=== PATIENT | male | born 1955 | race Caucasian/White ===

== ENCOUNTER 2023-02-19 10:54 | Inpatient (IN) | payer MEDICARE ==
[2023-02-19] MEDS ORDERED: Cefepime 2 GM VIAL ONE (11:52)
[2023-02-19] MEDS ORDERED: Furosemide 40 MG/4 ML VIAL ONE (11:53)
[2023-02-19 12:24] LABS: #Eosinphils 0.2 thou/uL (0.0-0.7); #Lymphocytes 0.7 thou/uL (1.20-3.40); #Monocytes 1.1 thou/uL (0.11-0.59); #Neutrophils 5.7 thou/uL (1.40-6.50); %Basophils 0.2 % (0.0-1.0); %Eosinophils 2.4 % (0.0-10.0); %Lymphocytes 8.8 % (21.0-51.0); %Monocytes 13.8 % (0.0-10.0); %Neutrophils 74.8 % (42.0-75.0); Mean Corpuscular HGB CONC 32.2 g/dL (32.0-36.0); Mean Corpuscular Hemoglobin 32.8 pg (27.0-31.0); Mean Platelet Volume 7.2 fL (7.4-10.4); Platelet Count 276 10x3/uL (130-400); RBC Distribution Width 12.6 % (11.5-14.5); Red Blood Cell (RBC) Count 4.59 mill/uL (4.70-6.10); White Blood Cell (WBC) Count 7.6 10x3/uL (4.8-10.8)
[2023-02-19 12:51] LABS: ALT (SGPT) 18 U/L (8-55); AST (SGOT) 39 U/L (5-34); Albumin 3.1 g/dL (3.4-4.8); Alkaline Phosphatase 113 U/L (40-110); Anion Gap 12 mmol/L (10-20); BUN (Urea Nitrogen) 6 mg/dL (8.4-25.7); Bilirubin, Total 2.1 mg/dL (0.2-1.2); CK (CPK) 78 U/L (30-200); CRP (Inflammatory) 2.78 mg/dL (= or < 0.5); Calc. Creatinine Clearance 0 mL/min (70-130); Calcium 8.6 mg/dL (7.8-10.44); Carbon Dioxide 25 mmol/L (23-31); Chloride 105 mmol/L (98-107); Estimated GFR 97; Globulin 3.3 g/dL (2.4-3.5); Glucose 113 mg/dL (80-115); Lipase 40 U/L (8-78); Potassium 3.8 mmol/L (3.5-5.1); Protein, Total 6.4 g/dL (5.8-8.1); Sodium 138 mmol/L (136-145)
[2023-02-19 13:01] LABS: Bilirubin Negative (Negative); Blood, Urine Negative (Negative); Clarity Clear (Clear); Glucose, Urine (Dipstick) Normal (Negative); Ketone, Urine Negative (Negative); Leukocyte Negative Leu/uL (Negative); Nitrite Negative (Negative); Protein, Urine (Dipstick) Negative (Neg-Trace); Specific Gravity, Urine 1.007 (1.002-1.036)
[2023-02-19] MEDS ORDERED: Vancomycin 1 GM/200 ML (FROZEN) BAG ONE (13:28)
[2023-02-19] MEDS ORDERED: Acetaminophen 325 MG TAB PO PRN ×2 (14:13→17:54)
[2023-02-19] MEDS ORDERED: Ondansetron PF 4 MG/2 ML Vial IVP PRN (14:13)
[2023-02-19] MEDS ORDERED: Ondansetron ODT 4 MG TAB SL PRN (14:13)
[2023-02-19 15:29] LABS: Lactic Acid 2.1 mmol/L (0.5-2.2)
[2023-02-19 15:39] LABS: Troponin I 0.012 ng/mL (< 0.028)
[2023-02-19] MEDS ORDERED: Ondansetron ODT 4 MG TAB PO PRN (17:54)
[2023-02-19] MEDS ORDERED: Senokot S 8.6-50 MG TAB PO PRN (17:54)
[2023-02-19] MEDS ORDERED: Nystatin Powder 15 GM BOT TOP PRN (17:55)
[2023-02-19] MEDS ORDERED: Morphine 4 MG/ML VIAL SLOW IVP PRN (17:58)
[2023-02-19] MEDS ORDERED: VANCOMYCIN IVPB PRN (17:59)
[2023-02-19] MEDS ORDERED: Vancomycin 1.5 GRAM/300 ML BAG 1.5 GM in Premix Bag 1 BAG IVPB SCH (18:15)
[2023-02-19] MEDS ORDERED: Vancomycin 1 GM in Premix Bag 1 BAG IVPB SCH (21:00)
[2023-02-20] MEDS: Cefepime 1 GM in Sodium Chloride 0.9% 100 ML IVPB SCH ×2 (00:18→11:25)
[2023-02-20 01:41] LABS: Lactic Acid 1.7 mmol/L (0.5-2.2)
[2023-02-20 04:57] LABS: #Eosinphils 0.2 thou/uL (0.0-0.7); #Lymphocytes 0.8 thou/uL (1.20-3.40); #Monocytes 1.1 thou/uL (0.11-0.59); #Neutrophils 5.1 thou/uL (1.40-6.50); %Basophils 0.2 % (0.0-1.0); %Eosinophils 2.6 % (0.0-10.0); %Lymphocytes 10.7 % (21.0-51.0); %Monocytes 14.9 % (0.0-10.0); %Neutrophils 71.5 % (42.0-75.0); Hemoglobin 14.4 g/dL (14.0-18.0); Hemoglobin A1c 4.8 % (4.0-6.0); Mean Corpuscular HGB CONC 32.8 g/dL (32.0-36.0); Mean Corpuscular Hemoglobin 33.4 pg (27.0-31.0); Mean Platelet Volume 6.9 fL (7.4-10.4); Platelet Count 259 10x3/uL (130-400); RBC Distribution Width 12.5 % (11.5-14.5); White Blood Cell (WBC) Count 7.1 10x3/uL (4.8-10.8)
[2023-02-20 05:22] LABS: Calcium 8.1 mg/dL (7.8-10.44); Chloride 104 mmol/L (98-107); Potassium 3.8 mmol/L (3.5-5.1); Sodium 135 mmol/L (136-145)
[2023-02-20 05:28] LABS: Albumin 3.1 g/dL (3.4-4.8); Globulin 3.2 g/dL (2.4-3.5); Glucose 121 mg/dL (80-115); Protein, Total 6.3 g/dL (5.8-8.1)
[2023-02-20 05:30] LABS: Anion Gap 12 mmol/L (10-20); Bilirubin, Total 2.1 mg/dL (0.2-1.2); Carbon Dioxide 23 mmol/L (23-31)
[2023-02-20 05:31] LABS: Alkaline Phosphatase 109 U/L (40-110)
[2023-02-20 05:32] LABS: BUN (Urea Nitrogen) 7 mg/dL (8.4-25.7); Calc. Creatinine Clearance 202 mL/min (70-130); Estimated GFR 95
[2023-02-20 05:33] LABS: AST (SGOT) 36 U/L (5-34)
[2023-02-20 05:34] LABS: ALT (SGPT) 16 U/L (8-55)
[2023-02-20] MEDS: Furosemide 40 MG/4 ML VIAL SLOW IVP SCH ×2 (06:50→14:55)
[2023-02-20] MEDS ORDERED: VANCOMYCIN 2 GRAM/500 ML BAG 2 GM in Premix Bag 1 BAG IVPB SCH (09:00)
[2023-02-20] MEDS: Albumin 25% 25 GM/100 ML BOT IVPB SCH (17:45)
[2023-02-20] MEDS: VANCOMYCIN 2 GRAM/500 ML BAG 2 GM in Premix Bag 1 BAG IVPB SCH (21:37)
[2023-02-21] MEDS: Albumin 25% 25 GM/100 ML BOT IVPB SCH ×3 (00:09→17:09)
[2023-02-21] MEDS: Cefepime 1 GM in Sodium Chloride 0.9% 100 ML IVPB SCH (01:12)
[2023-02-21 04:47] LABS: #Eosinphils 0.3 thou/uL (0.0-0.7); #Lymphocytes 0.7 thou/uL (1.20-3.40); #Monocytes 0.8 thou/uL (0.11-0.59); #Neutrophils 3.7 thou/uL (1.40-6.50); %Basophils 0.2 % (0.0-1.0); %Eosinophils 5.5 % (0.0-10.0); %Lymphocytes 12.7 % (21.0-51.0); %Monocytes 14.7 % (0.0-10.0); %Neutrophils 66.9 % (42.0-75.0); Hemoglobin 14.2 g/dL (14.0-18.0); Mean Corpuscular HGB CONC 33.4 g/dL (32.0-36.0); Mean Corpuscular Hemoglobin 33.9 pg (27.0-31.0); Mean Platelet Volume 7.3 fL (7.4-10.4); Platelet Count 221 10x3/uL (130-400); RBC Distribution Width 12.5 % (11.5-14.5); Red Blood Cell (RBC) Count 4.19 mill/uL (4.70-6.10); White Blood Cell (WBC) Count 5.5 10x3/uL (4.8-10.8)
[2023-02-21 05:09] LABS: ALT (SGPT) 15 U/L (8-55); AST (SGOT) 34 U/L (5-34); Albumin 3.3 g/dL (3.4-4.8); Alkaline Phosphatase 102 U/L (40-110); Anion Gap 12 mmol/L (10-20); BUN (Urea Nitrogen) 9 mg/dL (8.4-25.7); Bilirubin, Total 1.7 mg/dL (0.2-1.2); Calc. Creatinine Clearance 215 mL/min (70-130); Calcium 8.5 mg/dL (7.8-10.44); Carbon Dioxide 25 mmol/L (23-31); Chloride 106 mmol/L (98-107); Estimated GFR 97; Glucose 116 mg/dL (80-115); Potassium 3.5 mmol/L (3.5-5.1); Protein, Total 6.3 g/dL (5.8-8.1); Sodium 139 mmol/L (136-145)
[2023-02-21] MEDS: Furosemide 40 MG/4 ML VIAL SLOW IVP SCH ×2 (06:42→13:58)
[2023-02-21 08:40] LABS: Vancomycin, Trough 21.2 ug/mL
[2023-02-21] MEDS: VANCOMYCIN 2 GRAM/500 ML BAG 2 GM in Premix Bag 1 BAG IVPB SCH (10:51)
[2023-02-21] MEDS: Vancomycin 1.5 GRAM/300 ML BAG 1.5 GM in Premix Bag 1 BAG IVPB SCH ×2 (11:08→21:35)
[2023-02-21] MEDS: Cefepime 2 GM in Sodium Chloride 0.9% 100 ML IVPB SCH (13:58)
[2023-02-21] MEDS ORDERED: Albumin 25% 25 GM/100 ML BOT IVPB SCH (15:45)
[2023-02-22] MEDS: Cefepime 2 GM in Sodium Chloride 0.9% 100 ML IVPB SCH ×2 (00:06→12:09)
[2023-02-22 05:06] LABS: #Eosinphils 0.4 thou/uL (0.0-0.7); #Lymphocytes 0.6 thou/uL (1.20-3.40); #Monocytes 0.6 thou/uL (0.11-0.59); #Neutrophils 3.3 thou/uL (1.40-6.50); %Basophils 0.7 % (0.0-1.0); %Eosinophils 7.3 % (0.0-10.0); %Lymphocytes 12.3 % (21.0-51.0); %Monocytes 12.9 % (0.0-10.0); %Neutrophils 66.8 % (42.0-75.0); Hemoglobin 14.2 g/dL (14.0-18.0); Mean Corpuscular HGB CONC 34.4 g/dL (32.0-36.0); Mean Corpuscular Hemoglobin 34.7 pg (27.0-31.0); Mean Platelet Volume 7.3 fL (7.4-10.4); Platelet Count 188 10x3/uL (130-400); RBC Distribution Width 12.7 % (11.5-14.5); Red Blood Cell (RBC) Count 4.08 mill/uL (4.70-6.10); White Blood Cell (WBC) Count 4.9 10x3/uL (4.8-10.8)
[2023-02-22 05:35] LABS: Anion Gap 13 mmol/L (10-20); BUN (Urea Nitrogen) 11 mg/dL (8.4-25.7); Calc. Creatinine Clearance 223 mL/min (70-130); Calcium 8.3 mg/dL (7.8-10.44); Carbon Dioxide 24 mmol/L (23-31); Chloride 104 mmol/L (98-107); Estimated GFR 98; Glucose 113 mg/dL (80-115); Potassium 3.2 mmol/L (3.5-5.1); Sodium 138 mmol/L (136-145)
[2023-02-22] MEDS: Furosemide 40 MG/4 ML VIAL SLOW IVP SCH ×2 (06:15→14:56)
[2023-02-22] MEDS: Aquaphor 3.5 oz (99 G) JAR TOP SCH (09:50)
[2023-02-22] MEDS: Vancomycin 1.5 GRAM/300 ML BAG 1.5 GM in Premix Bag 1 BAG IVPB SCH (12:08)
[2023-02-22] MEDS ORDERED: Potassium Chloride 20 MEQ in Premix Bag 1 BAG IVPB SCH (12:15)
[2023-02-22 21:58] LABS: Vancomycin, Trough 20.6 ug/mL
[2023-02-22] MEDS: VANCOMYCIN 1.25 GM/250 ML BAG 1.25 GM in Premix Bag 1 BAG IVPB SCH (22:19)
[2023-02-23] MEDS: Cefepime 2 GM in Sodium Chloride 0.9% 100 ML IVPB SCH ×3 (00:01→23:01)
[2023-02-23 04:47] LABS: #Eosinphils 0.4 thou/uL (0.0-0.7); #Lymphocytes 0.7 thou/uL (1.20-3.40); #Monocytes 0.7 thou/uL (0.11-0.59); #Neutrophils 3.4 thou/uL (1.40-6.50); %Basophils 0.7 % (0.0-1.0); %Eosinophils 7.1 % (0.0-10.0); %Lymphocytes 12.7 % (21.0-51.0); %Monocytes 13.8 % (0.0-10.0); %Neutrophils 65.8 % (42.0-75.0); Hemoglobin 14.1 g/dL (14.0-18.0); Mean Corpuscular HGB CONC 33.1 g/dL (32.0-36.0); Mean Corpuscular Hemoglobin 33.5 pg (27.0-31.0); Mean Platelet Volume 7.5 fL (7.4-10.4); Platelet Count 223 10x3/uL (130-400); RBC Distribution Width 12.7 % (11.5-14.5); Red Blood Cell (RBC) Count 4.21 mill/uL (4.70-6.10); White Blood Cell (WBC) Count 5.1 10x3/uL (4.8-10.8)
[2023-02-23 05:07] LABS: Anion Gap 14 mmol/L (10-20); BUN (Urea Nitrogen) 12 mg/dL (8.4-25.7); Calc. Creatinine Clearance 215 mL/min (70-130); Calcium 8.5 mg/dL (7.8-10.44); Carbon Dioxide 24 mmol/L (23-31); Chloride 104 mmol/L (98-107); Estimated GFR 98; Glucose 113 mg/dL (80-115); Potassium 3.2 mmol/L (3.5-5.1); Sodium 139 mmol/L (136-145)
[2023-02-23 05:26] LABS: HBSAg Index 0.25 S/CO (0-0.99); Hep B Surf Ag Non-Reactive S/CO (NonReactive); Hep C IgG Ab Non-Reactive (NonReactive); Hep C Index 0.15 S/CO (0-0.79)
[2023-02-23] MEDS: Furosemide 40 MG/4 ML VIAL SLOW IVP SCH ×2 (05:34→13:42)
[2023-02-23] MEDS: Vancomycin 1.5 GRAM/300 ML BAG 1.5 GM in Premix Bag 1 BAG IVPB SCH (06:02)
[2023-02-23] MEDS ORDERED: Potassium Bicarbonate/Cit Ac 20 MEQ TAB PO SCH (08:30)
[2023-02-23] MEDS: Spironolactone 100 MG TAB PO SCH (10:14)
[2023-02-23] MEDS: VANCOMYCIN 1.25 GM/250 ML BAG 1.25 GM in Premix Bag 1 BAG IVPB SCH ×2 (10:15→21:16)
[2023-02-23] MEDS: Aquaphor 3.5 oz (99 G) JAR TOP SCH (10:19)
[2023-02-23 11:14] VITALS: BMI 49.3
[2023-02-24] MEDS: Furosemide 40 MG/4 ML VIAL SLOW IVP SCH ×2 (05:44→14:05)
[2023-02-24 07:03] LABS: #Eosinphils 0.5 thou/uL (0.0-0.7); #Lymphocytes 0.9 thou/uL (1.20-3.40); #Neutrophils 4.6 thou/uL (1.40-6.50); %Basophils 0.1 % (0.0-1.0); %Eosinophils 6.6 % (0.0-10.0); %Lymphocytes 12.4 % (21.0-51.0); %Monocytes 14.7 % (0.0-10.0); %Neutrophils 66.1 % (42.0-75.0); Hemoglobin 15.4 g/dL (14.0-18.0); Mean Corpuscular HGB CONC 33.5 g/dL (32.0-36.0); Mean Platelet Volume 7.4 fL (7.4-10.4); Platelet Count 275 10x3/uL (130-400); RBC Distribution Width 12.7 % (11.5-14.5); Red Blood Cell (RBC) Count 4.52 mill/uL (4.70-6.10)
[2023-02-24 07:12] LABS: Anion Gap 15 mmol/L (10-20); BUN (Urea Nitrogen) 12 mg/dL (8.4-25.7); Calc. Creatinine Clearance 204 mL/min (70-130); Calcium 8.8 mg/dL (7.8-10.44); Carbon Dioxide 24 mmol/L (23-31); Chloride 102 mmol/L (98-107); Estimated GFR 97; Glucose 125 mg/dL (80-115); Potassium 4.1 mmol/L (3.5-5.1); Sodium 137 mmol/L (136-145)
[2023-02-24] MEDS: Spironolactone 100 MG TAB PO SCH (08:03)
[2023-02-24] MEDS: Aquaphor 3.5 oz (99 G) JAR TOP SCH (08:40)
[2023-02-24] MEDS: Thiamine 100 MG TAB PO SCH (08:40)
[2023-02-24] MEDS: Folic Acid 1 MG TAB PO SCH (08:40)
[2023-02-24 09:50] LABS: Vancomycin, Trough 17.8 ug/mL
[2023-02-24] MEDS: VANCOMYCIN 1.25 GM/250 ML BAG 1.25 GM in Premix Bag 1 BAG IVPB SCH ×2 (10:44→21:16)
[2023-02-24] MEDS: Cefepime 2 GM in Sodium Chloride 0.9% 100 ML IVPB SCH ×2 (12:22→22:56)
[2023-02-25] MEDS: Furosemide 40 MG/4 ML VIAL SLOW IVP SCH ×2 (05:26→13:23)
[2023-02-25 08:35] LABS: Hemoglobin 14.7 g/dL (14.0-18.0); Mean Corpuscular Hemoglobin 34.5 pg (27.0-31.0); Mean Platelet Volume 7.4 fL (7.4-10.4); Platelet Count 218 10x3/uL (130-400); RBC Distribution Width 12.8 % (11.5-14.5); Red Blood Cell (RBC) Count 4.26 mill/uL (4.70-6.10)
[2023-02-25 08:42] LABS: Anion Gap 14 mmol/L (10-20); BUN (Urea Nitrogen) 12 mg/dL (8.4-25.7); Calc. Creatinine Clearance 210 mL/min (70-130); Calcium 8.5 mg/dL (7.8-10.44); Carbon Dioxide 25 mmol/L (23-31); Chloride 102 mmol/L (98-107); Estimated GFR 97; Glucose 118 mg/dL (80-115); Potassium 3.6 mmol/L (3.5-5.1); Sodium 137 mmol/L (136-145)
[2023-02-25] MEDS: Spironolactone 100 MG TAB PO SCH (09:19)
[2023-02-25] MEDS: Folic Acid 1 MG TAB PO SCH (09:19)
[2023-02-25] MEDS: Thiamine 100 MG TAB PO SCH (09:19)
[2023-02-25] MEDS: Aquaphor 3.5 oz (99 G) JAR TOP SCH (09:19)
[2023-02-25 09:37] LABS: Eosinophils 8 % (0-10); Lymphocytes 6 % (21-51); MDiff Complete? YES; Monocytes 8 % (0-10); Neutrophil 78 % (42-75); Platelet Morphology Comment Appears Adequate; Vacuoles SLIGHT
[2023-02-25 10:15] LABS: Vancomycin, Trough 16.9 ug/mL
[2023-02-25] MEDS: VANCOMYCIN 1.25 GM/250 ML BAG 1.25 GM in Premix Bag 1 BAG IVPB SCH (11:53)
[2023-02-25] MEDS: Cefepime 2 GM in Sodium Chloride 0.9% 100 ML IVPB SCH (12:54)
[2023-02-25] MEDS: Doxycycline 100 MG CAP PO SCH (20:53)
[2023-02-26] MEDS: Furosemide 40 MG/4 ML VIAL SLOW IVP SCH ×2 (05:41→13:56)
[2023-02-26 07:06] LABS: Mean Corpuscular HGB CONC 34.5 g/dL (32.0-36.0); Mean Platelet Volume 7.6 fL (7.4-10.4); Platelet Count 226 10x3/uL (130-400); RBC Distribution Width 12.7 % (11.5-14.5); Red Blood Cell (RBC) Count 4.28 mill/uL (4.70-6.10); White Blood Cell (WBC) Count 6.3 10x3/uL (4.8-10.8)
[2023-02-26 07:39] LABS: Anion Gap 14 mmol/L (10-20); BUN (Urea Nitrogen) 11 mg/dL (8.4-25.7); Calc. Creatinine Clearance 196 mL/min (70-130); Calcium 8.6 mg/dL (7.8-10.44); Carbon Dioxide 25 mmol/L (23-31); Chloride 101 mmol/L (98-107); Estimated GFR 95; Glucose 119 mg/dL (80-115); Potassium 3.4 mmol/L (3.5-5.1); Sodium 137 mmol/L (136-145)
[2023-02-26] MEDS: Thiamine 100 MG TAB PO SCH (08:52)
[2023-02-26] MEDS: Spironolactone 100 MG TAB PO SCH (08:52)
[2023-02-26] MEDS: Folic Acid 1 MG TAB PO SCH (08:52)
[2023-02-26] MEDS: Doxycycline 100 MG CAP PO SCH ×2 (08:52→19:52)
[2023-02-26] MEDS: Aquaphor 3.5 oz (99 G) JAR TOP SCH (08:53)
[2023-02-26 11:34] LABS: Eosinophils 4 % (0-10); Large Platelets SLIGHT; Lymphocytes 12 % (21-51); MDiff Complete? YES; Monocytes 15 % (0-10); Neutrophil 68 % (42-75); Platelet Morphology Comment Appears Adequate; Vacuoles SLIGHT
[2023-02-27] MEDS: Furosemide 40 MG/4 ML VIAL SLOW IVP SCH ×2 (05:55→14:13)
[2023-02-27] MEDS: Spironolactone 100 MG TAB PO SCH (07:57)
[2023-02-27] MEDS: Folic Acid 1 MG TAB PO SCH (07:57)
[2023-02-27] MEDS: Thiamine 100 MG TAB PO SCH (07:57)
[2023-02-27] MEDS: Aquaphor 3.5 oz (99 G) JAR TOP SCH (07:57)
[2023-02-27] MEDS: Doxycycline 100 MG CAP PO SCH ×2 (07:57→20:06)
[2023-02-28 07:45] VITALS: BP 175/74; TEMP 97.7
[2023-02-28] MEDS: Thiamine 100 MG TAB PO SCH (08:30)
[2023-02-28] MEDS: Spironolactone 100 MG TAB PO SCH (08:30)
[2023-02-28] MEDS: Doxycycline 100 MG CAP PO SCH (08:30)
[2023-02-28] MEDS: Folic Acid 1 MG TAB PO SCH (08:30)
[2023-02-28] MEDS: Aquaphor 3.5 oz (99 G) JAR TOP SCH (08:31)
[2023-02-28] MEDS ORDERED: Furosemide 40 MG TAB PO SCH (09:00)
== END 2023-02-28 11:22 | disposition home or self-care (01) | DRG 603 ==
LOC: ERS 10:54 → 2NO 16:43 → T4-B 02-23 15:08
PROVIDERS: ADMIT Internal Medicine; ATTEND Internal Medicine
DX: L03.115 Cellulitis of right lower limb (principal); Z68.43 Body mass index [BMI] 50.0-59.9, adult; I50.32 Chronic diastolic (congestive) heart failure; L03.116 Cellulitis of left lower limb; E66.01 Morbid (severe) obesity due to excess calories; E88.09 Other disorders of plasma-protein metabolism, not elsewhere classified; D75.89 Other specified diseases of blood and blood-forming organs; K70.31 Alcoholic cirrhosis of liver with ascites; I87.2 Venous insufficiency (chronic) (peripheral); Z79.899 Other long term (current) drug therapy
CPT/HCPCS: 36415; 36416; 71045; 71046; 76700; 80048; 80053; 80202; 81003; 82550; 83036; 83605; 83690; 83735; 83880; 84443; 84484; 85025; 86140; 86803; 87040; 87076; 87086; 87340; 93005; 93306; 93970; 96374; 96375; 97139; J0692; J1650; J1940; J3370; J3370-JW; J3480; J3490; P9047

== ENCOUNTER 2023-05-07 14:33 | Inpatient (IN) | payer MEDICARE ==
[2023-05-07] MEDS ORDERED: Furosemide 40 MG/4 ML VIAL ONE (15:19)
[2023-05-07] MEDS ORDERED: Nitroglycerin 2% Ointment 1 INCH/1 GM Packet ONE (15:19)
[2023-05-07] MEDS ORDERED: Aspirin Chewable 81 MG TAB ONE (15:19)
[2023-05-07 15:28] LABS: #Eosinphils 0.1 thou/uL (0.0-0.7); #Monocytes 0.9 thou/uL (0.11-0.59); #Neutrophils 4.4 thou/uL (1.40-6.50); %Basophils 0.5 % (0.0-1.0); %Eosinophils 1.4 % (0.0-10.0); %Lymphocytes 7.8 % (21.0-51.0); %Monocytes 14.9 % (0.0-10.0); %Neutrophils 75.1 % (42.0-75.0); Hemoglobin 14.7 g/dL (14.0-18.0); Mean Corpuscular HGB CONC 33.3 g/dL (32.0-36.0); Mean Corpuscular Hemoglobin 32.3 pg (27.0-31.0); Mean Corpuscular Volume 97.1 fl (78.0-98.0); Platelet Count 206 10x3/uL (130-400); RBC Distribution Width 14.7 % (11.5-14.5); Red Blood Cell (RBC) Count 4.55 mill/uL (4.70-6.10); White Blood Cell (WBC) Count 5.9 10x3/uL (4.8-10.8)
[2023-05-07 15:55] LABS: ALT (SGPT) 14 U/L (8-55); AST (SGOT) 35 U/L (5-34); Alkaline Phosphatase 123 U/L (40-110); Anion Gap 13 mmol/L (10-20); BUN (Urea Nitrogen) 5 mg/dL (8.4-25.7); CK (CPK) 26 U/L (30-200); Calc. Creatinine Clearance 0 mL/min (70-130); Calcium 8.5 mg/dL (7.8-10.44); Carbon Dioxide 25 mmol/L (23-31); Chloride 103 mmol/L (98-107); Estimated GFR 98; Globulin 3.2 g/dL (2.4-3.5); Glucose 110 mg/dL (80-115); Lipase 31 U/L (8-78); Potassium 3.7 mmol/L (3.5-5.1); Protein, Total 6.2 g/dL (5.8-8.1); Sodium 137 mmol/L (136-145)
[2023-05-07] MEDS ORDERED: Ondansetron PF 4 MG/2 ML Vial IVP PRN (18:00)
[2023-05-07] MEDS ORDERED: Ondansetron ODT 4 MG TAB SL PRN (18:00)
[2023-05-07 19:42] LABS: Troponin I Less than 0.010 ng/mL (< 0.028)
[2023-05-07] MEDS: Nitroglycerin 2% Ointment 1 INCH/1 GM Packet TOP SCH (21:25)
[2023-05-07 22:31] LABS: Troponin I Less than 0.010 ng/mL (< 0.028)
[2023-05-08 05:20] LABS: #Eosinphils 0.1 thou/uL (0.0-0.7); #Monocytes 0.9 thou/uL (0.11-0.59); #Neutrophils 3.9 thou/uL (1.40-6.50); %Basophils 0.7 % (0.0-1.0); %Eosinophils 2.5 % (0.0-10.0); %Lymphocytes 9.7 % (21.0-51.0); %Monocytes 16.1 % (0.0-10.0); %Neutrophils 70.5 % (42.0-75.0); Hemoglobin 14.5 g/dL (14.0-18.0); Mean Corpuscular HGB CONC 32.8 g/dL (32.0-36.0); Mean Corpuscular Hemoglobin 32.2 pg (27.0-31.0); Mean Platelet Volume 9.3 fL (7.4-10.4); Platelet Count 224 10x3/uL (130-400); RBC Distribution Width 14.8 % (11.5-14.5); Red Blood Cell (RBC) Count 4.51 mill/uL (4.70-6.10); White Blood Cell (WBC) Count 5.6 10x3/uL (4.8-10.8)
[2023-05-08] MEDS: Furosemide 40 MG/4 ML VIAL SLOW IVP SCH ×2 (05:28→14:53)
[2023-05-08] MEDS: Nitroglycerin 2% Ointment 1 INCH/1 GM Packet TOP SCH (05:29)
[2023-05-08 05:46] LABS: ALT (SGPT) 15 U/L (8-55); AST (SGOT) 37 U/L (5-34); Albumin 3.1 g/dL (3.4-4.8); Alkaline Phosphatase 125 U/L (40-110); Anion Gap 14 mmol/L (10-20); BUN (Urea Nitrogen) 6 mg/dL (8.4-25.7); Bilirubin, Total 2.1 mg/dL (0.2-1.2); Calc. Creatinine Clearance 186 mL/min (70-130); Calcium 8.8 mg/dL (7.8-10.44); Carbon Dioxide 27 mmol/L (23-31); Chloride 101 mmol/L (98-107); Estimated GFR 96; Globulin 3.7 g/dL (2.4-3.5); Glucose 111 mg/dL (80-115); Potassium 4.3 mmol/L (3.5-5.1); Protein, Total 6.8 g/dL (5.8-8.1); Sodium 138 mmol/L (136-145)
[2023-05-08] MEDS: Spironolactone 25 MG TAB PO SCH (08:58)
[2023-05-08] MEDS ORDERED: Ondansetron PF 4 MG/2 ML Vial IVP PRN (19:22)
[2023-05-08] MEDS ORDERED: Electrolyte Replacement Protocol 1 EACH FS SCH (21:30)
[2023-05-08 21:59] LABS: Magnesium 1.9 mg/dL (1.6-2.6); Phosphorus 2.6 mg/dL (2.3-4.7)
[2023-05-09 05:09] LABS: Anion Gap 15 mmol/L (10-20); BUN (Urea Nitrogen) 8 mg/dL (8.4-25.7); Calc. Creatinine Clearance 17 mL/min (70-130); Calcium 8.5 mg/dL (7.8-10.44); Carbon Dioxide 26 mmol/L (23-31); Chloride 101 mmol/L (98-107); Estimated GFR 93; Glucose 110 mg/dL (80-115); Phosphorus 3.2 mg/dL (2.3-4.7); Potassium 4.3 mmol/L (3.5-5.1); Sodium 138 mmol/L (136-145)
[2023-05-09] MEDS: Furosemide 40 MG/4 ML VIAL SLOW IVP SCH ×2 (06:08→15:42)
[2023-05-09] MEDS ORDERED: Magnesium 2 GM/50 ML(in water) 2 GM in Premix Bag 1 BAG IVPB SCH (08:00)
[2023-05-09] MEDS ORDERED: Acetaminophen 325 MG TAB PO PRN (09:19)
[2023-05-09] MEDS ORDERED: Acetaminophen 650 MG Suppository PR PRN (09:19)
[2023-05-09] MEDS: Spironolactone 25 MG TAB PO SCH (10:52)
[2023-05-09] MEDS: Thiamine 100 MG TAB PO SCH (10:53)
[2023-05-10] MEDS ORDERED: Lidocaine 1% PF 5 ML VIAL ONE ×2 (10:46→14:37)
[2023-05-10] MEDS ORDERED: PROPOFOL 200 MG/20 ML VIAL ONE (10:46)
[2023-05-10 12:06] LABS: Hemoglobin 14.4 g/dL (14.0-18.0); Mean Corpuscular HGB CONC 33.3 g/dL (32.0-36.0); Mean Corpuscular Volume 99.1 fl (78.0-98.0); Platelet Count 193 10x3/uL (130-400); RBC Distribution Width 14.7 % (11.5-14.5); Red Blood Cell (RBC) Count 4.37 mill/uL (4.70-6.10); White Blood Cell (WBC) Count 5.6 10x3/uL (4.8-10.8)
[2023-05-10] MEDS: Thiamine 100 MG TAB PO SCH (12:22)
[2023-05-10] MEDS: Furosemide 40 MG/4 ML VIAL SLOW IVP SCH ×2 (12:22→16:42)
[2023-05-10] MEDS: Spironolactone 25 MG TAB PO SCH (12:22)
[2023-05-10 12:28] LABS: Anion Gap 12 mmol/L (10-20); BUN (Urea Nitrogen) 11 mg/dL (8.4-25.7); Calc. Creatinine Clearance 18 mL/min (70-130); Calcium 8.8 mg/dL (7.8-10.44); Carbon Dioxide 31 mmol/L (23-31); Chloride 98 mmol/L (98-107); Estimated GFR 95; Glucose 90 mg/dL (80-115); Iron 48 ug/dL (65-175); Iron Binding Capacity, Total 156 mcg/dL (261-462); Potassium 4.4 mmol/L (3.5-5.1); Sodium 137 mmol/L (136-145)
[2023-05-10 12:40] LABS: INR-International Normal Ratio 1.3; Prothrombin Time 16.7 sec (12.0-14.7)
[2023-05-10 12:46] LABS: Ferritin 497.38 ng/mL (22-322)
[2023-05-10] MEDS: Pantoprazole 40 MG VIAL IVP SCH (12:50)
[2023-05-10 12:58] VITALS: BMI 46.6
[2023-05-10 13:00] LABS: HBSAg Index 0.27 S/CO (0-0.99); Hep A IgM AB Non-Reactive S/CO (NonReactive); Hep A IgM S/CO 0.19 S/CO (0-0.79); Hep B Surf Ag Non-Reactive S/CO (NonReactive); Hep C IgG Ab Non-Reactive S/CO (NonReactive); Hep C Index 0.13 S/CO (0-0.79); Hepatitis B Core IgM Abs Non-Reactive S/CO (NonReactive)
[2023-05-10] MEDS ORDERED: Sodium Bicarbonate 2.5 MEQ/5 ML VIAL ONE (14:37)
[2023-05-10 16:02] LABS: RBC Count-Automated (BF) 19708 /cu.mm; WBC/Nucleated-Auto (BF) 205 /cu.mm
[2023-05-10 16:27] LABS: Body Fluid Source Ascites Body Fluid; Clarity Hazy (Clear); Tube # EDTA
[2023-05-10 16:31] LABS: BF Segmented Neutrophils 9 %; Cell Count Non Hematic 54 %; Lymphocytes 36 %
[2023-05-11 05:20] LABS: Anion Gap 12 mmol/L (10-20); BUN (Urea Nitrogen) 12 mg/dL (8.4-25.7); Calc. Creatinine Clearance 193 mL/min (70-130); Calcium 8.4 mg/dL (7.8-10.44); Carbon Dioxide 30 mmol/L (23-31); Chloride 97 mmol/L (98-107); Estimated GFR 97; Glucose 129 mg/dL (80-115); Potassium 3.4 mmol/L (3.5-5.1); Sodium 136 mmol/L (136-145)
[2023-05-11] MEDS: Furosemide 40 MG/4 ML VIAL SLOW IVP SCH (06:09)
[2023-05-11] MEDS ORDERED: Spironolactone 25 MG TAB PER TUBE SCH (08:00)
[2023-05-11] MEDS ORDERED: Acetaminophen 325 MG TAB PER TUBE PRN (08:00)
[2023-05-11] MEDS ORDERED: Potassium Bicarbonate/Cit Ac 20 MEQ TAB PO SCH (09:00)
[2023-05-11] MEDS: Thiamine 100 MG TAB PER TUBE SCH (09:59)
[2023-05-11] MEDS: Pantoprazole 40 MG VIAL IVP SCH (09:59)
[2023-05-11] MEDS: Furosemide 40 MG TAB PO SCH (15:21)
[2023-05-12 06:30] LABS: Anion Gap 13 mmol/L (10-20); BUN (Urea Nitrogen) 13 mg/dL (8.4-25.7); Calc. Creatinine Clearance 180 mL/min (70-130); Calcium 8.6 mg/dL (7.8-10.44); Carbon Dioxide 35 mmol/L (23-31); Chloride 98 mmol/L (98-107); Estimated GFR 95; Glucose 130 mg/dL (80-115); Potassium 4.1 mmol/L (3.5-5.1); Sodium 142 mmol/L (136-145)
[2023-05-12] MEDS: Thiamine 100 MG TAB PER TUBE SCH (08:42)
[2023-05-12] MEDS: Furosemide 40 MG TAB PO SCH ×2 (08:42→14:21)
[2023-05-12] MEDS: Spironolactone 100 MG TAB PO SCH (08:42)
[2023-05-12] MEDS: Pantoprazole 40 MG VIAL IVP SCH (08:43)
[2023-05-12 12:30] LABS: ANA Symphony (Qualitative) Negative (Negative); ANA Symphony (Quantitative) 0.6 Ratio (< 0.7 Negative); EliA Vaculitis New Method **** NEW METHOD ****; Mitochondrial Ab 1.6 U/mL (<4 Negative)
[2023-05-12] MEDS ORDERED: Polyethylene Glycol 3350 17 GM Packet PER TUBE SCH (21:15)
[2023-05-13 06:26] LABS: #Basophils 0.1 thou/uL (0.0-0.2); #Eosinphils 0.2 thou/uL (0.0-0.7); #Monocytes 0.9 thou/uL (0.11-0.59); #Neutrophils 3.8 thou/uL (1.40-6.50); %Basophils 0.9 % (0.0-1.0); %Eosinophils 4.3 % (0.0-10.0); %Lymphocytes 10.7 % (21.0-51.0); %Monocytes 16.7 % (0.0-10.0); Hemoglobin 14.4 g/dL (14.0-18.0); Mean Corpuscular HGB CONC 33.1 g/dL (32.0-36.0); Mean Corpuscular Hemoglobin 32.6 pg (27.0-31.0); Mean Corpuscular Volume 98.4 fl (78.0-98.0); Mean Platelet Volume 9.5 fL (7.4-10.4); Platelet Count 218 10x3/uL (130-400); Red Blood Cell (RBC) Count 4.42 mill/uL (4.70-6.10); White Blood Cell (WBC) Count 5.6 10x3/uL (4.8-10.8)
[2023-05-13 06:57] LABS: ALT (SGPT) 20 U/L (8-55); AST (SGOT) 50 U/L (5-34); Albumin 3.1 g/dL (3.4-4.8); Alkaline Phosphatase 145 U/L (40-110); Anion Gap 13 mmol/L (10-20); BUN (Urea Nitrogen) 13 mg/dL (8.4-25.7); Bilirubin, Total 1.4 mg/dL (0.2-1.2); Calc. Creatinine Clearance 203 mL/min (70-130); Calcium 8.8 mg/dL (7.8-10.44); Carbon Dioxide 35 mmol/L (23-31); Chloride 96 mmol/L (98-107); Estimated GFR 98; Globulin 3.9 g/dL (2.4-3.5); Glucose 118 mg/dL (80-115); Magnesium 2.1 mg/dL (1.6-2.6); Potassium 3.9 mmol/L (3.5-5.1); Sodium 140 mmol/L (136-145)
[2023-05-13] MEDS: Spironolactone 100 MG TAB PO SCH (09:50)
[2023-05-13] MEDS: Polyethylene Glycol 3350 17 GM Packet PER TUBE SCH (09:51)
[2023-05-13] MEDS: Pantoprazole 40 MG VIAL IVP SCH (09:51)
[2023-05-13] MEDS: Furosemide 40 MG TAB PO SCH ×2 (09:51→14:57)
[2023-05-13] MEDS: Thiamine 100 MG TAB PER TUBE SCH (09:52)
[2023-05-14 07:39] LABS: #Eosinphils 0.3 thou/uL (0.0-0.7); #Monocytes 0.9 thou/uL (0.11-0.59); #Neutrophils 3.7 thou/uL (1.40-6.50); %Basophils 0.5 % (0.0-1.0); %Eosinophils 5.8 % (0.0-10.0); %Lymphocytes 9.8 % (21.0-51.0); %Monocytes 15.6 % (0.0-10.0); %Neutrophils 67.9 % (42.0-75.0); Hemoglobin 14.1 g/dL (14.0-18.0); Mean Corpuscular HGB CONC 33.3 g/dL (32.0-36.0); Mean Corpuscular Hemoglobin 32.7 pg (27.0-31.0); Mean Corpuscular Volume 98.4 fl (78.0-98.0); Mean Platelet Volume 9.8 fL (7.4-10.4); Platelet Count 208 10x3/uL (130-400); Red Blood Cell (RBC) Count 4.31 mill/uL (4.70-6.10); White Blood Cell (WBC) Count 5.5 10x3/uL (4.8-10.8)
[2023-05-14 08:09] LABS: ALT (SGPT) 19 U/L (8-55); AST (SGOT) 45 U/L (5-34); Albumin 2.9 g/dL (3.4-4.8); Alkaline Phosphatase 127 U/L (40-110); Anion Gap 14 mmol/L (10-20); BUN (Urea Nitrogen) 13 mg/dL (8.4-25.7); Bilirubin, Total 1.3 mg/dL (0.2-1.2); Calc. Creatinine Clearance 198 mL/min (70-130); Calcium 8.6 mg/dL (7.8-10.44); Carbon Dioxide 31 mmol/L (23-31); Chloride 99 mmol/L (98-107); Estimated GFR 97; Globulin 3.8 g/dL (2.4-3.5); Glucose 122 mg/dL (80-115); Magnesium 2.1 mg/dL (1.6-2.6); Protein, Total 6.7 g/dL (5.8-8.1); Sodium 140 mmol/L (136-145)
[2023-05-14] MEDS: Furosemide 40 MG TAB PO SCH ×2 (09:12→14:22)
[2023-05-14] MEDS: Pantoprazole 40 MG VIAL IVP SCH (09:13)
[2023-05-14] MEDS: Thiamine 100 MG TAB PER TUBE SCH (09:13)
[2023-05-14] MEDS: Spironolactone 100 MG TAB PO SCH (09:17)
[2023-05-14] MEDS: Polyethylene Glycol 3350 17 GM Packet PER TUBE SCH (09:17)
[2023-05-14] MEDS ORDERED: Furosemide 40 MG/4 ML VIAL SLOW IVP SCH (17:00)
[2023-05-14] MEDS: Albumin 25% 25 GM/100 ML BOT IVPB SCH (18:31)
[2023-05-15] MEDS: Albumin 25% 25 GM/100 ML BOT IVPB SCH ×4 (00:32→17:00)
[2023-05-15] MEDS: Furosemide 40 MG/4 ML VIAL SLOW IVP SCH ×2 (06:24→14:24)
[2023-05-15 06:44] LABS: #Eosinphils 0.3 thou/uL (0.0-0.7); #Neutrophils 3.7 thou/uL (1.40-6.50); %Basophils 0.7 % (0.0-1.0); %Lymphocytes 10.3 % (21.0-51.0); %Monocytes 17.7 % (0.0-10.0); %Neutrophils 64.8 % (42.0-75.0); Hemoglobin 13.4 g/dL (14.0-18.0); Mean Corpuscular HGB CONC 32.4 g/dL (32.0-36.0); Mean Corpuscular Hemoglobin 32.3 pg (27.0-31.0); Mean Corpuscular Volume 99.5 fl (78.0-98.0); Mean Platelet Volume 9.8 fL (7.4-10.4); Platelet Count 193 10x3/uL (130-400); RBC Distribution Width 15.2 % (11.5-14.5); Red Blood Cell (RBC) Count 4.15 mill/uL (4.70-6.10); White Blood Cell (WBC) Count 5.6 10x3/uL (4.8-10.8)
[2023-05-15 07:10] LABS: Anion Gap 12 mmol/L (10-20); BUN (Urea Nitrogen) 14 mg/dL (8.4-25.7); Calc. Creatinine Clearance 171 mL/min (70-130); Calcium 9.1 mg/dL (7.8-10.44); Carbon Dioxide 35 mmol/L (23-31); Chloride 96 mmol/L (98-107); Estimated GFR 89; Glucose 131 mg/dL (80-115); Potassium 4.4 mmol/L (3.5-5.1); Sodium 139 mmol/L (136-145)
[2023-05-15] MEDS: Spironolactone 100 MG TAB PO SCH (09:31)
[2023-05-15] MEDS: Thiamine 100 MG TAB PER TUBE SCH (09:31)
[2023-05-15] MEDS: Pantoprazole 40 MG VIAL IVP SCH (09:32)
[2023-05-15] MEDS: Polyethylene Glycol 3350 17 GM Packet PER TUBE SCH (09:32)
[2023-05-15] MEDS ORDERED: Metolazone 5 MG TAB PO SCH (11:15)
[2023-05-16 06:16] LABS: #Basophils 0.1 thou/uL (0.0-0.2); #Eosinphils 0.3 thou/uL (0.0-0.7); #Monocytes 0.9 thou/uL (0.11-0.59); #Neutrophils 3.3 thou/uL (1.40-6.50); %Eosinophils 5.1 % (0.0-10.0); %Lymphocytes 11.4 % (21.0-51.0); %Neutrophils 64.1 % (42.0-75.0); Mean Corpuscular HGB CONC 32.7 g/dL (32.0-36.0); Mean Corpuscular Hemoglobin 31.8 pg (27.0-31.0); Mean Corpuscular Volume 97.1 fl (78.0-98.0); Mean Platelet Volume 9.9 fL (7.4-10.4); Platelet Count 194 10x3/uL (130-400); Red Blood Cell (RBC) Count 4.09 mill/uL (4.70-6.10); White Blood Cell (WBC) Count 5.1 10x3/uL (4.8-10.8)
[2023-05-16] MEDS: Furosemide 40 MG/4 ML VIAL SLOW IVP SCH ×2 (06:30→15:10)
[2023-05-16 06:47] LABS: ALT (SGPT) 17 U/L (8-55); AST (SGOT) 35 U/L (5-34); Albumin 3.7 g/dL (3.4-4.8); Alkaline Phosphatase 101 U/L (40-110); Anion Gap 13 mmol/L (10-20); BUN (Urea Nitrogen) 16 mg/dL (8.4-25.7); Calc. Creatinine Clearance 191 mL/min (70-130); Calcium 9.4 mg/dL (7.8-10.44); Carbon Dioxide 33 mmol/L (23-31); Chloride 93 mmol/L (98-107); Estimated GFR 96; Globulin 3.3 g/dL (2.4-3.5); Glucose 112 mg/dL (80-115); Potassium 4.1 mmol/L (3.5-5.1); Sodium 135 mmol/L (136-145)
[2023-05-16] MEDS: Thiamine 100 MG TAB PER TUBE SCH (08:56)
[2023-05-16] MEDS: Spironolactone 100 MG TAB PO SCH (08:56)
[2023-05-16] MEDS: Pantoprazole 40 MG VIAL IVP SCH (08:57)
[2023-05-16] MEDS: Polyethylene Glycol 3350 17 GM Packet PER TUBE SCH (08:57)
[2023-05-16] MEDS ORDERED: Furosemide 20 MG/2 ML VIAL SLOW IVP SCH (18:00)
[2023-05-17] MEDS: Furosemide 40 MG/4 ML VIAL SLOW IVP SCH ×2 (06:10→14:43)
[2023-05-17 07:31] LABS: ALT (SGPT) 16 U/L (8-55); AST (SGOT) 38 U/L (5-34); Albumin 3.7 g/dL (3.4-4.8); Alkaline Phosphatase 105 U/L (40-110); Anion Gap 18 mmol/L (10-20); BUN (Urea Nitrogen) 20 mg/dL (8.4-25.7); Calc. Creatinine Clearance 182 mL/min (70-130); Calcium 9.7 mg/dL (7.8-10.44); Carbon Dioxide 30 mmol/L (23-31); Chloride 91 mmol/L (98-107); Estimated GFR 95; Globulin 3.7 g/dL (2.4-3.5); Glucose 107 mg/dL (80-115); Magnesium 2.4 mg/dL (1.6-2.6); Protein, Total 7.4 g/dL (5.8-8.1); Sodium 135 mmol/L (136-145)
[2023-05-17] MEDS: Spironolactone 100 MG TAB PO SCH (09:47)
[2023-05-17] MEDS: Thiamine 100 MG TAB PER TUBE SCH (09:47)
[2023-05-17] MEDS: Pantoprazole 40 MG VIAL IVP SCH (09:48)
[2023-05-17] MEDS: Polyethylene Glycol 3350 17 GM Packet PER TUBE SCH (09:48)
[2023-05-18] MEDS: Furosemide 40 MG/4 ML VIAL SLOW IVP SCH ×2 (05:49→13:57)
[2023-05-18 07:43] LABS: Anion Gap 16 mmol/L (10-20); BUN (Urea Nitrogen) 24 mg/dL (8.4-25.7); Calc. Creatinine Clearance 163 mL/min (70-130); Calcium 9.4 mg/dL (7.8-10.44); Carbon Dioxide 29 mmol/L (23-31); Chloride 93 mmol/L (98-107); Estimated GFR 86; Glucose 114 mg/dL (80-115); Magnesium 2.5 mg/dL (1.6-2.6); Potassium 4.3 mmol/L (3.5-5.1); Sodium 134 mmol/L (136-145)
[2023-05-18] MEDS: Thiamine 100 MG TAB PER TUBE SCH (08:56)
[2023-05-18] MEDS: Polyethylene Glycol 3350 17 GM Packet PER TUBE SCH (08:56)
[2023-05-18] MEDS: Spironolactone 100 MG TAB PO SCH (08:56)
[2023-05-18] MEDS: Pantoprazole 40 MG VIAL IVP SCH (08:57)
[2023-05-18] MEDS: Docusate Sodium 100 MG/10 ML UDCUP PO PRN (13:56)
[2023-05-18] MEDS ORDERED: Simethicone Chewable 80 MG TAB PO PRN (17:37)
[2023-05-19] MEDS: Furosemide 40 MG/4 ML VIAL SLOW IVP SCH ×2 (05:35→14:09)
[2023-05-19 06:38] LABS: #Basophils 0.1 thou/uL (0.0-0.2); #Eosinphils 0.2 thou/uL (0.0-0.7); #Neutrophils 4.2 thou/uL (1.40-6.50); %Eosinophils 3.3 % (0.0-10.0); %Lymphocytes 9.5 % (21.0-51.0); %Monocytes 16.7 % (0.0-10.0); %Neutrophils 68.8 % (42.0-75.0); Hemoglobin 14.3 g/dL (14.0-18.0); Mean Corpuscular Hemoglobin 32.3 pg (27.0-31.0); Mean Corpuscular Volume 97.7 fl (78.0-98.0); Platelet Count 210 10x3/uL (130-400); RBC Distribution Width 14.8 % (11.5-14.5); Red Blood Cell (RBC) Count 4.43 mill/uL (4.70-6.10); White Blood Cell (WBC) Count 6.1 10x3/uL (4.8-10.8)
[2023-05-19 08:21] LABS: Anion Gap 17 mmol/L (10-20); BUN (Urea Nitrogen) 28 mg/dL (8.4-25.7); Calc. Creatinine Clearance 144 mL/min (70-130); Calcium 9.9 mg/dL (7.8-10.44); Carbon Dioxide 33 mmol/L (23-31); Chloride 90 mmol/L (98-107); Estimated GFR 74; Glucose 115 mg/dL (80-115); Magnesium 2.4 mg/dL (1.6-2.6); Potassium 4.7 mmol/L (3.5-5.1); Sodium 135 mmol/L (136-145)
[2023-05-19] MEDS: Thiamine 100 MG TAB PER TUBE SCH (08:50)
[2023-05-19] MEDS: Spironolactone 100 MG TAB PO SCH (08:50)
[2023-05-19] MEDS: Polyethylene Glycol 3350 17 GM Packet PER TUBE SCH (08:50)
[2023-05-19] MEDS: Pantoprazole 40 MG VIAL IVP SCH (08:50)
[2023-05-19] MEDS: Docusate Sodium 100 MG/10 ML UDCUP PO PRN (10:24)
[2023-05-19 16:38] VITALS: BP 123/68; TEMP 98.3
== END 2023-05-19 17:13 | DRG 432 ==
LOC: ERS 14:33 → SUATTDRO 14:33 → 2NO 16:40 → T4-A 05-11 16:52
PROVIDERS: ADMIT Family Medicine; ATTEND Internal Medicine
PROC: 0W9G3ZZ Drainage of Peritoneal Cavity, Percutaneous Approach (ICD-10-PCS; principal; 2023-05-10)
PROC: 0DD68ZX Extraction of Stomach, Via Natural or Artificial Opening Endoscopic, Diagnostic (ICD-10-PCS; 2023-05-10)
PROC: 0DH683Z Insertion of Infusion Device into Stomach, Via Natural or Artificial Opening Endoscopic (ICD-10-PCS; 2023-05-10)
PROC: 30233J1 Transfusion of Nonautologous Serum Albumin into Peripheral Vein, Percutaneous Approach (ICD-10-PCS; 2023-05-14)
DX: K70.31 Alcoholic cirrhosis of liver with ascites (principal); I50.33 Acute on chronic diastolic (congestive) heart failure; L03.116 Cellulitis of left lower limb; Z68.42 Body mass index [BMI] 45.0-49.9, adult; I89.0 Lymphedema, not elsewhere classified; R26.81 Unsteadiness on feet; Z51.5 Encounter for palliative care; I87.2 Venous insufficiency (chronic) (peripheral); G89.29 Other chronic pain; F10.21 Alcohol dependence, in remission; R09.02 Hypoxemia; R13.12 Dysphagia, oropharyngeal phase; R79.89 Other specified abnormal findings of blood chemistry; E87.6 Hypokalemia; K29.70 Gastritis, unspecified, without bleeding; K59.00 Constipation, unspecified; E66.01 Morbid (severe) obesity due to excess calories; Z71.89 Other specified counseling; Z79.899 Other long term (current) drug therapy; Z98.890 Other specified postprocedural states; Z80.9 Family history of malignant neoplasm, unspecified; Z91.198 Patient's noncompliance with other medical treatment and regimen for other reason
CPT/HCPCS: 36415; 49083; 71045; 74230; 80048; 80053; 80074; 82042; 82105; 82390; 82550; 82728; 83516; 83540; 83550; 83690; 83735; 83880; 84100; 84157; 84484; 85025; 85027; 85060; 85610; 86015; 86038; 86225; 87070; 87205; 88112; 88305; 89051; 93005; 96374; C9113; J1650; J1940; J2405; J2704; P9047

== ENCOUNTER 2023-08-24 17:40 | Inpatient (IN) | payer MEDICARE ==
[2023-08-24 18:37] LABS: #Basophils 0.1 thou/uL (0.0-0.2); #Eosinphils 0.3 thou/uL (0.0-0.7); #Monocytes 0.9 thou/uL (0.11-0.59); #Neutrophils 4.7 thou/uL (1.40-6.50); %Lymphocytes 10.3 % (21.0-51.0); %Monocytes 13.9 % (0.0-10.0); %Neutrophils 70.4 % (42.0-75.0); Hematocrit 38.6 % (42.0-52.0); Hemoglobin 13.1 g/dL (14.0-18.0); Mean Corpuscular HGB CONC 33.9 g/dL (32.0-36.0); Mean Corpuscular Hemoglobin 33.5 pg (27.0-31.0); Mean Corpuscular Volume 98.7 fl (78.0-98.0); Mean Platelet Volume 8.8 fL (7.4-10.4); Platelet Count 231 10x3/uL (130-400); RBC Distribution Width 14.8 % (11.5-14.5); Red Blood Cell (RBC) Count 3.91 mill/uL (4.70-6.10); White Blood Cell (WBC) Count 6.7 10x3/uL (4.8-10.8)
[2023-08-24 19:01] LABS: ALT (SGPT) 19 U/L (8-55); AST (SGOT) 51 U/L (5-34); Albumin 2.6 g/dL (3.4-4.8); Alkaline Phosphatase 161 U/L (40-110); Anion Gap 11 mmol/L (10-20); BUN (Urea Nitrogen) 9 mg/dL (8.4-25.7); Bilirubin, Total 1.8 mg/dL (0.2-1.2); Calc. Creatinine Clearance 0 mL/min (70-130); Calcium 8.4 mg/dL (7.8-10.44); Carbon Dioxide 27 mmol/L (23-31); Chloride 101 mmol/L (98-107); Estimated GFR 100; Globulin 3.6 g/dL (2.4-3.5); Glucose 84 mg/dL (80-115); Potassium 4.3 mmol/L (3.5-5.1); Protein, Total 6.2 g/dL (5.8-8.1); Sodium 135 mmol/L (136-145)
[2023-08-24 19:07] LABS: Troponin I Less than 0.010 ng/mL (< 0.028)
[2023-08-24] MEDS ORDERED: Furosemide 40 MG/4 ML VIAL ONE (20:35)
[2023-08-24] MEDS ORDERED: Acetaminophen 650 MG Suppository PR PRN (21:36)
[2023-08-24] MEDS ORDERED: Ondansetron ODT 4 MG TAB PO PRN (21:36)
[2023-08-24] MEDS ORDERED: Ondansetron PF 4 MG/2 ML Vial IVP PRN (21:36)
[2023-08-24] MEDS ORDERED: Acetaminophen 325 MG TAB PO PRN (21:36)
[2023-08-25 00:50] VITALS: BMI 37.0
[2023-08-25] MEDS ORDERED: Electrolyte Replacement Protocol 1 EACH FS SCH (03:00)
[2023-08-25 04:33] LABS: #Basophils 0.1 thou/uL (0.0-0.2); #Eosinphils 0.3 thou/uL (0.0-0.7); #Neutrophils 4.6 thou/uL (1.40-6.50); %Basophils 0.9 % (0.0-1.0); %Eosinophils 4.6 % (0.0-10.0); %Lymphocytes 11.2 % (21.0-51.0); %Monocytes 14.6 % (0.0-10.0); %Neutrophils 68.1 % (42.0-75.0); Hematocrit 38.5 % (42.0-52.0); Hemoglobin 13.3 g/dL (14.0-18.0); Mean Corpuscular HGB CONC 34.5 g/dL (32.0-36.0); Mean Corpuscular Hemoglobin 33.8 pg (27.0-31.0); Platelet Count 239 10x3/uL (130-400); RBC Distribution Width 14.6 % (11.5-14.5); Red Blood Cell (RBC) Count 3.93 mill/uL (4.70-6.10); White Blood Cell (WBC) Count 6.8 10x3/uL (4.8-10.8)
[2023-08-25 05:16] LABS: Anion Gap 13 mmol/L (10-20); BUN (Urea Nitrogen) 8 mg/dL (8.4-25.7); Calc. Creatinine Clearance 185 mL/min (70-130); Carbon Dioxide 25 mmol/L (23-31); Chloride 100 mmol/L (98-107); Estimated GFR 102; Glucose 82 mg/dL (80-115); Magnesium 1.8 mg/dL (1.6-2.6); Potassium 3.4 mmol/L (3.5-5.1); Sodium 135 mmol/L (136-145)
[2023-08-25] MEDS: Furosemide 40 MG/4 ML VIAL SLOW IVP SCH ×2 (06:10→14:42)
[2023-08-25] MEDS ORDERED: Potassium Chloride 20 MEQ TAB PO SCH (08:00)
[2023-08-25] MEDS ORDERED: Magnesium 2 GM/50 ML(in water) 2 GM in Premix Bag 1 BAG IVPB SCH (08:00)
[2023-08-25] MEDS ORDERED: Empagliflozin 10 MG TAB PO SCH ×2 (09:56→10:00)
[2023-08-25] MEDS ORDERED: Losartan 25 MG TAB PO SCH ×2 (09:57→10:00)
[2023-08-25] MEDS: Spironolactone 100 MG TAB PO SCH (10:12)
[2023-08-25 10:23] LABS: ALT (SGPT) 16 U/L (8-55); AST (SGOT) 43 U/L (5-34); Albumin 2.7 g/dL (3.4-4.8); Alkaline Phosphatase 148 U/L (40-110); Bilirubin, Direct 0.9 mg/dL (0.1-0.3); Bilirubin, Total 1.9 mg/dL (0.2-1.2); Protein, Total 6.1 g/dL (5.8-8.1)
[2023-08-26 04:18] LABS: #Basophils 0.1 thou/uL (0.0-0.2); #Eosinphils 0.3 thou/uL (0.0-0.7); #Monocytes 1.2 thou/uL (0.11-0.59); #Neutrophils 4.8 thou/uL (1.40-6.50); %Basophils 0.8 % (0.0-1.0); %Eosinophils 4.7 % (0.0-10.0); %Lymphocytes 12.3 % (21.0-51.0); %Neutrophils 65.8 % (42.0-75.0); Hematocrit 37.9 % (42.0-52.0); Hemoglobin 13.1 g/dL (14.0-18.0); Mean Corpuscular HGB CONC 34.6 g/dL (32.0-36.0); Mean Corpuscular Hemoglobin 34.1 pg (27.0-31.0); Mean Corpuscular Volume 98.7 fl (78.0-98.0); Mean Platelet Volume 9.1 fL (7.4-10.4); Platelet Count 272 10x3/uL (130-400); RBC Distribution Width 14.9 % (11.5-14.5); Red Blood Cell (RBC) Count 3.84 mill/uL (4.70-6.10); White Blood Cell (WBC) Count 7.2 10x3/uL (4.8-10.8)
[2023-08-26 04:42] LABS: ALT (SGPT) 15 U/L (8-55); AST (SGOT) 33 U/L (5-34); Albumin 2.6 g/dL (3.4-4.8); Alkaline Phosphatase 136 U/L (40-110); Anion Gap 11 mmol/L (10-20); BUN (Urea Nitrogen) 7 mg/dL (8.4-25.7); Bilirubin, Total 1.9 mg/dL (0.2-1.2); Calc. Creatinine Clearance 172 mL/min (70-130); Calcium 8.2 mg/dL (7.8-10.44); Carbon Dioxide 29 mmol/L (23-31); Chloride 100 mmol/L (98-107); Estimated GFR 100; Globulin 3.3 g/dL (2.4-3.5); Glucose 88 mg/dL (80-115); Potassium 3.6 mmol/L (3.5-5.1); Protein, Total 5.9 g/dL (5.8-8.1); Sodium 136 mmol/L (136-145)
[2023-08-26] MEDS: Furosemide 40 MG/4 ML VIAL SLOW IVP SCH ×2 (05:09→15:08)
[2023-08-26] MEDS: Empagliflozin 10 MG TAB PO SCH (08:54)
[2023-08-26] MEDS: Nadolol 40 MG TAB PO SCH (08:54)
[2023-08-26] MEDS: Spironolactone 100 MG TAB PO SCH (08:54)
[2023-08-26] MEDS ORDERED: Losartan 25 MG TAB PO SCH (09:00)
[2023-08-26 13:00] LABS: Magnesium 2.1 mg/dL (1.6-2.6)
[2023-08-27 04:10] LABS: #Basophils 0.1 thou/uL (0.0-0.2); #Eosinphils 0.5 thou/uL (0.0-0.7); #Monocytes 1.1 thou/uL (0.11-0.59); %Basophils 0.8 % (0.0-1.0); %Eosinophils 6.9 % (0.0-10.0); %Lymphocytes 11.8 % (21.0-51.0); %Neutrophils 65.8 % (42.0-75.0); Hematocrit 41.8 % (42.0-52.0); Hemoglobin 14.2 g/dL (14.0-18.0); Mean Corpuscular Hemoglobin 34.2 pg (27.0-31.0); Mean Corpuscular Volume 100.7 fl (78.0-98.0); Platelet Count 324 10x3/uL (130-400); RBC Distribution Width 14.6 % (11.5-14.5); Red Blood Cell (RBC) Count 4.15 mill/uL (4.70-6.10); White Blood Cell (WBC) Count 7.6 10x3/uL (4.8-10.8)
[2023-08-27 04:36] LABS: ALT (SGPT) 14 U/L (8-55); AST (SGOT) 34 U/L (5-34); Albumin 2.6 g/dL (3.4-4.8); Alkaline Phosphatase 139 U/L (40-110); Anion Gap 12 mmol/L (10-20); BUN (Urea Nitrogen) 8 mg/dL (8.4-25.7); Bilirubin, Total 2.3 mg/dL (0.2-1.2); Calc. Creatinine Clearance 158 mL/min (70-130); Calcium 8.4 mg/dL (7.8-10.44); Carbon Dioxide 31 mmol/L (23-31); Chloride 98 mmol/L (98-107); Estimated GFR 97; Globulin 3.6 g/dL (2.4-3.5); Glucose 85 mg/dL (80-115); Potassium 3.7 mmol/L (3.5-5.1); Protein, Total 6.2 g/dL (5.8-8.1); Sodium 137 mmol/L (136-145)
[2023-08-27] MEDS: Furosemide 40 MG/4 ML VIAL SLOW IVP SCH (06:03)
[2023-08-27] MEDS: Nadolol 40 MG TAB PO SCH (10:32)
[2023-08-27] MEDS: Empagliflozin 10 MG TAB PO SCH (10:32)
[2023-08-27] MEDS: Spironolactone 100 MG TAB PO SCH (10:32)
[2023-08-27] MEDS ORDERED: Torsemide 20 MG TAB PO SCH (11:45)
[2023-08-28 03:48] LABS: #Basophils 0.1 thou/uL (0.0-0.2); #Eosinphils 0.4 thou/uL (0.0-0.7); #Monocytes 1.1 thou/uL (0.11-0.59); #Neutrophils 5.1 thou/uL (1.40-6.50); %Basophils 0.8 % (0.0-1.0); %Eosinophils 4.6 % (0.0-10.0); %Lymphocytes 12.3 % (21.0-51.0); %Monocytes 14.7 % (0.0-10.0); %Neutrophils 67.2 % (42.0-75.0); Hematocrit 38.8 % (42.0-52.0); Hemoglobin 13.5 g/dL (14.0-18.0); Mean Corpuscular HGB CONC 34.8 g/dL (32.0-36.0); Mean Corpuscular Hemoglobin 33.9 pg (27.0-31.0); Mean Corpuscular Volume 97.5 fl (78.0-98.0); Mean Platelet Volume 8.8 fL (7.4-10.4); Platelet Count 287 10x3/uL (130-400); RBC Distribution Width 14.4 % (11.5-14.5); Red Blood Cell (RBC) Count 3.98 mill/uL (4.70-6.10); White Blood Cell (WBC) Count 7.6 10x3/uL (4.8-10.8)
[2023-08-28 04:15] LABS: ALT (SGPT) 14 U/L (8-55); AST (SGOT) 34 U/L (5-34); Albumin 2.5 g/dL (3.4-4.8); Alkaline Phosphatase 127 U/L (40-110); Anion Gap 11 mmol/L (10-20); BUN (Urea Nitrogen) 11 mg/dL (8.4-25.7); Bilirubin, Total 1.6 mg/dL (0.2-1.2); Calc. Creatinine Clearance 161 mL/min (70-130); Calcium 8.2 mg/dL (7.8-10.44); Carbon Dioxide 30 mmol/L (23-31); Chloride 99 mmol/L (98-107); Estimated GFR 98; Globulin 3.3 g/dL (2.4-3.5); Glucose 90 mg/dL (80-115); Potassium 3.7 mmol/L (3.5-5.1); Protein, Total 5.8 g/dL (5.8-8.1); Sodium 136 mmol/L (136-145)
[2023-08-28] MEDS: Empagliflozin 10 MG TAB PO SCH (09:10)
[2023-08-28] MEDS: Nadolol 40 MG TAB PO SCH (09:10)
[2023-08-28] MEDS: Spironolactone 100 MG TAB PO SCH (09:15)
[2023-08-28] MEDS: Torsemide 20 MG TAB PO SCH (09:15)
[2023-08-28] MEDS ORDERED: Iopamidol 370 76% 100 ML VIAL ONE (09:53)
[2023-08-28] MEDS ORDERED: Lorazepam 2 MG/ML VIAL SLOW IVP SCH (12:15)
[2023-08-28] MEDS ORDERED: Morphine 4 MG/ML VIAL SLOW IVP SCH (15:45)
[2023-08-29 04:34] LABS: #Eosinphils 0.1 thou/uL (0.0-0.7); #Monocytes 0.8 thou/uL (0.11-0.59); #Neutrophils 5.7 thou/uL (1.40-6.50); %Basophils 0.6 % (0.0-1.0); %Eosinophils 1.3 % (0.0-10.0); %Lymphocytes 6.9 % (21.0-51.0); %Monocytes 11.8 % (0.0-10.0); %Neutrophils 79.1 % (42.0-75.0); Hematocrit 39.6 % (42.0-52.0); Hemoglobin 13.3 g/dL (14.0-18.0); Mean Corpuscular HGB CONC 33.6 g/dL (32.0-36.0); Mean Corpuscular Hemoglobin 33.6 pg (27.0-31.0); Mean Platelet Volume 9.2 fL (7.4-10.4); Platelet Count 271 10x3/uL (130-400); RBC Distribution Width 14.6 % (11.5-14.5); Red Blood Cell (RBC) Count 3.96 mill/uL (4.70-6.10); White Blood Cell (WBC) Count 7.1 10x3/uL (4.8-10.8)
[2023-08-29 04:56] LABS: ALT (SGPT) 13 U/L (8-55); AST (SGOT) 30 U/L (5-34); Albumin 2.6 g/dL (3.4-4.8); Alkaline Phosphatase 123 U/L (40-110); Anion Gap 11 mmol/L (10-20); BUN (Urea Nitrogen) 12 mg/dL (8.4-25.7); Bilirubin, Total 1.4 mg/dL (0.2-1.2); Calc. Creatinine Clearance 139 mL/min (70-130); Calcium 8.4 mg/dL (7.8-10.44); Carbon Dioxide 32 mmol/L (23-31); Chloride 97 mmol/L (98-107); Estimated GFR 96; Globulin 3.6 g/dL (2.4-3.5); Glucose 111 mg/dL (80-115); Potassium 3.9 mmol/L (3.5-5.1); Protein, Total 6.2 g/dL (5.8-8.1); Sodium 136 mmol/L (136-145)
[2023-08-29] MEDS ORDERED: Amoxicillin/Potassium Clav 875 MG TAB PO SCH (09:00)
[2023-08-29] MEDS ORDERED: Azithromycin 250 MG TAB PO SCH (09:30)
[2023-08-29] MEDS: Torsemide 20 MG TAB PO SCH (09:55)
[2023-08-29] MEDS: Empagliflozin 10 MG TAB PO SCH (09:55)
[2023-08-29] MEDS: Nadolol 40 MG TAB PO SCH (09:56)
[2023-08-29] MEDS: Spironolactone 100 MG TAB PO SCH (10:02)
[2023-08-29 13:31] LABS: INR-International Normal Ratio 1.3; PTT 38.4 sec (22.9-36.1); Prothrombin Time 16.7 sec (12.0-14.7)
[2023-08-29] MEDS ORDERED: Lidocaine 1% PF 5 ML VIAL ONE (14:15)
[2023-08-29] MEDS ORDERED: Sodium Bicarbonate 2.5 MEQ/5 ML VIAL ONE (14:15)
[2023-08-29 16:15] VITALS: BP 110/58; TEMP 97.1
[2023-08-30] MEDS ORDERED: Azithromycin 250 MG TAB PO SCH (09:00)
== END 2023-08-29 17:25 | disposition home or self-care (01) | DRG 432 ==
LOC: ERS 17:40 → 2NO 21:46
PROVIDERS: ADMIT Student in an Organized Health Care Education/Training Program; ATTEND Internal Medicine
PROC: 0W9G3ZZ Drainage of Peritoneal Cavity, Percutaneous Approach (ICD-10-PCS; principal; 2023-08-29)
DX: K74.60 Unspecified cirrhosis of liver (principal); I50.33 Acute on chronic diastolic (congestive) heart failure; R18.8 Other ascites; I11.0 Hypertensive heart disease with heart failure; D53.9 Nutritional anemia, unspecified; I87.8 Other specified disorders of veins; E80.6 Other disorders of bilirubin metabolism; K21.9 Gastro-esophageal reflux disease without esophagitis; K82.8 Other specified diseases of gallbladder; K83.8 Other specified diseases of biliary tract; Z79.899 Other long term (current) drug therapy; Z60.2 Problems related to living alone
CPT/HCPCS: 36415; 49083; 71045; 74178; 76705; 80048; 80053; 80076; 83735; 83880; 84484; 85025; 85610; 85730; 93005; 93306; 93798; 96374; 97139; J1650; J1940; J2060; J2270; J3475; Q9967